=== PATIENT | male | born 1940 | race Caucasian/White ===

== ENCOUNTER → 2017-05-18 | Outpatient (CLI) | payer MEDICARE, OTHER ==
[~2017-05-18] MED LIST: ASPI-496 PO; ATOR80TA PO; CHOL500015 PO; HYDR473S51 PO; METO50TA4 PO
== END ==
LOC: CFH 08:00
DX: M16.0 Bilateral primary osteoarthritis of hip (principal); M25.851 Other specified joint disorders, right hip; M25.751 Osteophyte, right hip